=== PATIENT | male | born 1930 | race Caucasian/White ===

== ENCOUNTER 2017-02-25 08:51 | Day surgery (SDC) | payer BC ==
--- NOTE | ~2017-02-25 | EGD ---
EGD REPORT [facility] [address] [address] NAME: KATERINA LERMA : [birth year] STATUS : REG [facility] [place] PAT#: [id number] AGE: 86 ADM/REG DATE : 02/25/17 MR#: [id number] REPORT SERV DATE: 02/25/17 DICTATED BY: MOHSEN AYALA DATE: 02/25/17 REPORT STATUS : Draft TRANSCRIBED BY: [facility] DATE: 02/25/17 Endoscopy Center Patient Name: Katerina Lerma Date of : 1930 Attending MD: MOHSEN AYALA MD Procedure Date No Time: 02/25/2017 Procedure: Upper GI endoscopy Indications: Iron deficiency anemia Referring MD: Scarlett RIVAS MD Medicines: Propofol per Anesthesia Complications: No immediate complications. Procedure: Pre-Anesthesia Assessment: - ASA Grade Assessment: II - A patient with mild systemic disease. After obtaining informed consent, the endoscope was passed under direct vision. Throughout the procedure, the patient's blood pressure, pulse, and oxygen saturations were monitored continuously. The GIF [id number] was introduced through the mouth, and advanced to the second part of duodenum. The upper GI endoscopy was accomplished without difficulty. The patient tolerated the procedure well. Findings: The examined esophagus was normal. Diffuse mild inflammation characterized by erosions and erythema was found in the stomach. Biopsies were taken with a cold forceps for histology. The examined duodenum was normal. Biopsies were taken with a cold forceps for histology. Impression: - Normal esophagus. - Chronic gastritis. Biopsied. - Normal examined duodenum. Biopsied. Recommendation: - Discharge patient to home (ambulatory). - Return to nurse practitioner in 3 weeks. Procedure Code(s): --- Professional --- 55577, Esophagogastroduodenoscopy, flexible, transoral; with biopsy, single or multiple Diagnosis Code(s): --- Professional --- K29.50, Unspecified chronic gastritis without bleeding D50.9, Iron deficiency anemia, unspecified EGD REPORT [facility] [address] [place] [address]. [address] NAME: KATERINA LERMA : [birth year] STATUS : REG [facility]#: [id number] AGE: 86 ADM/REG DATE : 02/25/17 MR#: [id number] REPORT SERV DATE: 02/25/17 DICTATED BY: MOHSEN AYALA. DATE: 02/25/17 REPORT STATUS : Draft TRANSCRIBED BY: [employer] DATE: 02/25/17 CPT copyright 2013 [employer]. All rights reserved. The codes documented in this report are preliminary and upon compressor operator portable review may be revised to meet current compliance requirements. Mohsen Ayala MD MOHSEN AYALA MD 02/25/2017 9:54 AM This report has been signed electronically. Number of Addenda: 0 Note Initiated On: 02/25/2017 9:41 AM Scope Withdrawal Time 0 hours 0 minutes 0 seconds [address] [place] [address]
--- NOTE | ~2017-02-25 | EGD ---
EGD REPORT [facility] [address] [place] [address] NAME: KATERINA LERMA : [birth year] STATUS : REG [facility]#: [id number] AGE: 86 ADM/REG DATE : 02/25/17 MR#: [id number] REPORT SERV DATE: 02/25/17 DICTATED BY: MOHSEN AYALA DATE: 02/25/17 REPORT STATUS : Draft TRANSCRIBED BY: [employer] DATE: 02/25/17 Endoscopy Center Patient Name: Katerina Lerma Date of : 1930 Attending MD: MOHSEN AYALA MD Procedure Date No Time: 02/25/2017 Procedure: Colonoscopy Indications: Hematochezia Referring MD: Scarlett RIVAS MD Medicines: Propofol per Anesthesia Complications: No immediate complications. Procedure: Pre-Anesthesia Assessment: - ASA Grade Assessment: II - A patient with mild systemic disease. After I obtained informed consent, the scope was passed under direct vision. Throughout the procedure, the patient's blood pressure, pulse, and oxygen saturations were monitored continuously. The CF [id number] was introduced through the anus and advanced to the cecum, identified by appendiceal orifice and ileocecal valve. The ileocecal valve, appendiceal orifice and terminal ileum were photographed. The entire colon was examined. The quality of the bowel preparation was good. Findings: The perianal and digital rectal examinations were normal. Internal hemorrhoids were found during retroflexion and were Grade I (internal hemorrhoids that do not prolapse). A sessile polyp was found in the ascending colon. The polyp was 4 mm in size. The polyp was removed with a cold biopsy forceps. Resection and retrieval were complete. Multiple small diffuse angioectasias without bleeding were found in the rectum. this was consistent with radiation proctitis. The rest of the colon was normal. Impression: - Internal hemorrhoids. - One 4 mm polyp in the ascending colon. Resected and retrieved. - Multiple non-bleeding colonic angioectasias. Recommendation: - Discharge patient to home (ambulatory). - Return to my office in 3 weeks. Procedure Code(s): --- Professional --- 79460, Colonoscopy, flexible, proximal to splenic EGD REPORT [facility] [address] [facility] [place]. [address] NAME: KATERINA LERMA : [birth year] STATUS : REG [facility] [place] PAT#: [id number] AGE: 86 ADM/REG DATE : 02/25/17 MR#: [id number] REPORT SERV DATE: 02/25/17 DICTATED BY: MOHSEN AYALA. DATE: 02/25/17 REPORT STATUS : Draft TRANSCRIBED BY: [employer] DATE: 02/25/17 flexure; with biopsy, single or multiple Diagnosis Code(s): --- Professional --- K64.0, First degree hemorrhoids D12.2, Benign neoplasm of ascending colon K55.20, Angiodysplasia of colon without hemorrhage K92.1, Melena CPT copyright 2013 [employer]. All rights reserved. The codes documented in this report are preliminary and upon carton machine operator review may be revised to meet current compliance requirements. Mohsen Ayala MD MOHSEN AYALA MD 02/25/2017 10:07 AM This report has been signed electronically. Number of Addenda: 0 Note Initiated On: 02/25/2017 9:38 AM Scope Withdrawal Time 0 hours 6 minutes 4 seconds [address] [place] [address]
[~2017-02-25 08:51] MED LIST: CO Q-10100 MG PO; HYDROCHLOROT25 MG PO; MULTIPLE VIT PO; PRIN10 PO; ZOCOR20 PO
== END 2017-02-25 23:59 | disposition home health service (06) ==
LOC: DMU 08:51
PROVIDERS: Internal Medicine Gastroenterology
PROC: 0DBK8ZX Excision of Ascending Colon, Via Natural or Artificial Opening Endoscopic, Diagnostic (ICD-10-PCS; 2017-02-25)
PROC: 0DB68ZX Excision of Stomach, Via Natural or Artificial Opening Endoscopic, Diagnostic (ICD-10-PCS; principal; 2017-02-25 11:30)
PROC: 0DB98ZX Excision of Duodenum, Via Natural or Artificial Opening Endoscopic, Diagnostic (ICD-10-PCS; 2017-02-25 11:30)
DX: D12.2 Benign neoplasm of ascending colon (principal); K64.0 First degree hemorrhoids; K55.20 Angiodysplasia of colon without hemorrhage; E78.5 Hyperlipidemia, unspecified; I10 Essential (primary) hypertension; E78.00 Pure hypercholesterolemia, unspecified; D50.9 Iron deficiency anemia, unspecified; Z79.82 Long term (current) use of aspirin; Z79.899 Other long term (current) drug therapy; Z98.890 Other specified postprocedural states
CPT/HCPCS: 88305